=== PATIENT | male | born 1940 | race American Indian/Alaskan Native ===

== ENCOUNTER 2016-11-19 09:24 | Outpatient (CLI) | payer MEDICARE ==
[2016-11-19 09:45] LABS: Hemoglobin 10.5 gm/dl (11.8-15.2); Mean Corpuscular HGB Conc 32 % (32-34); Mean Corpuscular Hemoglobin 32 pg (28-32); Mean Corpuscular Volume 99 fl (84-94); Platelet Count 164 K/mm3 (140-440); Red Blood Count 3.33 M/mm3 (3.65-5.03); Red Cell Distribution Width 18.6 % (13.2-15.2); White Blood Count 3.5 K/mm3 (4.5-11.0)
[2016-11-19 10:24] LABS: Albumin 4.2 g/dL (3.9-5); BUN/Creatinine Ratio 3.77; Bilirubin,Total 0.6 mg/dL (0.1-1.2); Calcium 9.6 mg/dL (8.4-10.2); Chloride 99.8 mmol/L (98-107); Potassium 3.9 mmol/L (3.6-5.0); Total Protein 8.3 g/dL (6.3-8.2)
[2016-11-21 17:25] LABS: Vitamin D, 25-OH, Total 36 ng/mL (30-100)
== END 2016-11-19 09:25 | disposition home or self-care (01) ==
LOC: LAB 09:24
PROVIDERS: ATTEND Internal Medicine
DX: Z00.01 Encounter for general adult medical examination with abnormal findings (principal); E11.65 Type 2 diabetes mellitus with hyperglycemia; N40.1 Benign prostatic hyperplasia with lower urinary tract symptoms
CPT/HCPCS: 36415; 80053; 80061; 82306; 83036; 84153; 84443; 85027

== ENCOUNTER 2018-02-11 08:34 | Outpatient (CLI) | payer MEDICARE ==
[2018-02-11 08:49] LABS: Hematocrit 33.2 % (35.5-45.6); Hemoglobin 11.1 gm/dl (11.8-15.2); Mean Corpuscular HGB Conc 33 % (32-34); Mean Corpuscular Hemoglobin 32 pg (28-32); Mean Corpuscular Volume 97 fl (84-94); Platelet Count 100 K/mm3 (140-440); Red Blood Count 3.43 M/mm3 (3.65-5.03); Red Cell Distribution Width 15.4 % (13.2-15.2)
[2018-02-11 09:03] LABS: Albumin 3.8 g/dL (3.9-5); Chol/HDL Ratio 1.5 %
== END 2018-02-11 08:35 | disposition home or self-care (01) ==
LOC: LAB 08:34
PROVIDERS: ATTEND Internal Medicine
DX: Z00.01 Encounter for general adult medical examination with abnormal findings (principal); R53.83 Other fatigue; N40.1 Benign prostatic hyperplasia with lower urinary tract symptoms; E55.9 Vitamin D deficiency, unspecified; E78.2 Mixed hyperlipidemia; I11.0 Hypertensive heart disease with heart failure; I50.9 Heart failure, unspecified; E78.00 Pure hypercholesterolemia, unspecified; I25.10 Atherosclerotic heart disease of native coronary artery without angina pectoris; Z87.891 Personal history of nicotine dependence
CPT/HCPCS: 36415; 80053; 80061; 82306; 83036; 84153; 84443; 85027

== ENCOUNTER 2020-06-30 14:03 | Inpatient (IN) | payer MEDICARE ==
--- NOTE | 2020-06-30 17:44 | XRay Report ---
CHEST 2 VIEWS INDICATION: weakness. COMPARISON: 09/26/2013 is compared FINDINGS: Support devices: None. Heart: Cardiac enlargement Lungs: Diffuse interstitial process with minimum patchy parenchymal changes right midlung zone Pleura: No significant pleural effusion. No pneumothorax. Additional findings: None. IMPRESSION: 1. Diffuse interstitial pulmonary edema probably secondary to left ventricular decompensation. Signer Name: Alli Yates MD Signed: 06/30/2020 5:39 PM Workstation Name: [id number]
--- NOTE | 2020-06-30 18:12 | Cat Scan Report ---
CT BRAIN: 06/30/2020 INDICATION / CLINICAL INFORMATION: blurred vision, generalized weakness. COMPARISON: None available. FINDINGS: BRAIN/INTRACRANIAL STRUCTURES: Unenhanced CT images of the brain demonstrate no evidence of acute int racranial abnormality. Ventricles and sulci are slightly prominent in size, consistent with normal age-related atrophic villagran ge. There is no evidence of acute ischemic injury, hemorrhage, or mass. There are no abnormal extra-axial fluid collections. EXTRACRANIAL STRUCTURES: Unremarkable. IMPRESSION: No acute abnormality. All CT scans at this location are performed using dose reduction to ALARA by means of automated expos ure control. Signer Name: Anant Arevalo MD Signed: 06/30/2020 6:07 PM Workstation Name: [id number]
--- NOTE | 2020-06-30 18:59 | Emergency Department Report ---
HPI - General Chief Complaint: Weakness Time Seen by Provider: 06/30/20 18:33 - HPI HPI: Room 24 The patient is a 79-year-old male present with a chief complaint of heavy legs. The patient states I dialysis yesterday he was told his blood pressure was low. Today the patient says he "kept falling" secondary to his legs feeling heavy and giving out. Patient denied any loss of consciousness or head injury with his falls. Patient denies chest pain or shortness of breath. Patient denies fever, cough or known contact with Covid positive patients. In triage the patient was found to be hypotensive at 89/35 but he is currently normotensive. ED Past Medical Hx - Past Medical History Previous Medical History?: Yes Hx Hypertension: Yes Hx Congestive Heart Failure: Yes Hx Renal Disease: Yes (M, W, F) - Surgical History Past Surgical History?: Yes Additional Surgical History: dialysis fistuala bilateral upper extremities (Left upper extremity fistula functional), kidney biopsy - Family History Family history: no significant - Social History Smoking Status: Former Smoker (None since 1989) Substance Use Type: None (Denies illicit drug use) - Medications Home Medications: Home Medications Medication Instructions Recorded Confirmed Last Taken Type Iron,Carb/Folate6/Mv,Min No.41 15 mg PO DAILY 09/27/13 02/18/14 02/17/14 History [Corvite 150 Tablet] 15 mg Paricalcitol [Zemplar] 4 mcg PO 3XW 09/27/13 02/18/14 02/17/14 History 4 mcg Furosemide [Lasix] 40 mg PO QDAY #30 tablet 10/01/13 02/18/14 02/18/14 08:00 Rx Simvastatin 40 mg PO QHS #30 tablet 10/01/13 02/18/14 02/17/14 Rx 40 Terazosin (Nf) [Hytrin (Nf)] 5 mg PO QHS #30 capsule 10/01/13 02/18/14 02/18/14 Rx 40 mg amLODIPine 10 mg PO DAILY #30 tablet 10/01/13 02/18/14 02/18/14 Rx 10 carvediloL [Coreg] 6.25 mg PO BID #60 tablet 10/01/13 02/18/14 02/18/14 Rx 6.25 cloNIDine [Catapres] 0.1 mg PO BID #60 tablet 10/01/13 02/18/14 02/18/14 10:00 Rx 0.1 hydrALAZINE [Apresoline TAB] 25 mg PO TID #90 tablet 10/01/13 02/18/14 02/18/14 08:00 Rx 25 ED Review of Systems ROS: Stated complaint: BLURRED VISION Other details as noted in HPI Constitutional: weakness. denies: fever Respiratory: no symptoms reported. denies: cough, shortness of breath Cardiovascular: denies: chest pain Endocrine: no symptoms reported Gastrointestinal: denies: abdominal pain Musculoskeletal: denies: back pain Neurological: denies: headache Physical Exam - Physical Exam Vital Signs: Vital Signs 06/30/20 18:02 Pulse Rate 60 Respiratory 20 Rate Blood Pressure 127/67 [Left] O2 Sat by Pulse 93 Oximetry Physical Exam: GENERAL: The patient is well-developed well-nourished male lying on stretcher not appearing to be in acute distress. [] HEENT: Normocephalic. Atraumatic. Extraocular motions are intact. Patient has moist mucous membranes. NECK: Supple. Trachea midline CHEST/LUNGS: Clear to auscultation. There is no respiratory distress noted. HEART/CARDIOVASCULAR: Regular. There is no tachycardia. There is no gallop rub or murmur. ABDOMEN: Abdomen is soft, nontender. Patient has normal bowel sounds. There is no abdominal distention. SKIN: There is no rash. There is no edema. There is no diaphoresis. NEURO: The patient is awake, alert, and oriented. The patient is cooperative. The patient has normal speech. Cranial nerves II through XII grossly intact. Moves both legs well. MUSCULOSKELETAL: There is no evidence of acute injury. ED Course Vital Signs 06/30/20 18:02 Pulse Rate 60 Respiratory 20 Rate Blood Pressure 127/67 [Left] O2 Sat by Pulse 93 Oximetry ED Medical Decision Making - Lab Data Result diagrams: 06/30/20 17:12 06/30/20 17:12 - EKG Data -: EKG Interpreted by Me Rate: bradycardia Critical care attestation.: If time is entered above; I have spent that time in minutes in the direct care of this critically ill patient, excluding procedure time. ED Disposition Clinical Impression: Symptomatic anemia Disposition: -09 OP ADMIT IP TO THIS HOSP Is pt being admited?: Yes Does the pt Need Aspirin: No Condition: Fair Referrals: PRIMARY CARE, [Primary Care Provider] - 3-5 Days Time of Disposition: 21:06 (Hospitalist paged (Dr Jeffries))
[2020-06-30 19:10] LABS: Basophils % (Auto) 0.7 % (0.0-1.8); Eosinophils # (Auto) 0.1 K/mm3 (0.0-0.4); Eosinophils % (Auto) 1.5 % (0.0-4.3); Hemoglobin 6.9 gm/dl (11.8-15.2); Lymphocytes # (Auto) 0.6 K/mm3 (1.2-5.4); Mean Corpuscular HGB Conc 33 % (32-34); Mean Corpuscular Volume 107 fl (84-94); Monocytes # (Auto) 0.5 K/mm3 (0.0-0.8); Monocytes % (Auto) 13.6 % (0.0-7.3); Platelet Count 112 K/mm3 (140-440); Red Blood Count 1.96 M/mm3 (3.65-5.03); Red Cell Distribution Width 17.5 % (13.2-15.2)
[2020-06-30 19:30] LABS: Albumin 3.7 g/dL (3.9-5); Calcium 9.1 mg/dL (8.4-10.2)
[2020-06-30 19:31] LABS: INR 1.68 (0.87-1.13)
[2020-06-30 19:32] LABS: Partial Thromboplastin Time 33.5 Sec. (24.2-36.6)
[2020-06-30 19:46] LABS: Free T4 (Free Thyroxine) 0.96 ng/dL (0.76-1.46)
[2020-06-30 19:52] LABS: Chol/HDL Ratio 2.06 %
[2020-06-30] MEDS ORDERED: SODIUM CHLORIDE 0.9% 500 ML 500 ML IV ONE (21:36)
[2020-06-30] MEDS ORDERED: MORPHINE 2 MG/1 ML INJ IV PRN (22:47)
[2020-06-30] MEDS ORDERED: ACETAMINOPHEN 325 MG TAB PO PRN (22:47)
[2020-06-30] MEDS ORDERED: ONDANSETRON 4 MG/2 ML INJ IV PRN (22:47)
[2020-06-30] MEDS ORDERED: MAGNESIUM HYDROXIDE (MOM) ORAL LIQD UDC PO PRN (22:47)
--- NOTE | 2020-06-30 22:58 | History and Physical Report ---
History of Present Illness Date of examination: 06/30/20 Date of admission: 06/30/20 21:35 Chief complaint: Generalized weakness History of present illness: 79-year-old male with known history of CHF, hypertension, end-stage renal disease on dialysis-on Mondays, Wednesdays and Fridays presenting to the emergency room today complaining of generalized weakness and has been having frequent falls because his legs were feeling weak and heavy. He denies any loss of consciousness and no head injury during his fall, he denies any chest pain or shortness of breath, no fever or chills, no nausea vomiting, denies any sick contacts and no recent travel, denies any contact with anyone with COVID-19. Patient has been compliant with his dialysis. Upon arrival in the emergency room today was found to be hypotensive with systolic blood pressure in the 80s and diastolic in the 30s. Work-up in the emergency room today reveals a hemoglobin of 6.9 with hematocrit of 21. Patient is being admitted for symptomatic anemia and will be transfused with 1 unit of packed red blood cell. Past History Past Medical History: dialysis, ESRD, heart failure, hypertension, hyperlipidemia Past Surgical History: Other (A-V fistula placement,Kidney biopsy) Social history: smoking (Former Smoker) Family history: no significant family history Medications and Allergies Allergies Allergy/AdvReac Type Severity Reaction Status Date / Time No Known Allergies Allergy Verified 10/08/13 07:00 Home Medications Medication Instructions Recorded Confirmed Last Taken Type Furosemide [Lasix] 40 mg PO QDAY #30 tablet 10/01/13 07/01/20 02/18/14 08:00 Rx Simvastatin 40 mg PO QHS #30 tablet 10/01/13 07/01/20 02/17/14 Rx 40 Terazosin (Nf) [Hytrin (Nf)] 5 mg PO QHS #30 capsule 10/01/13 07/01/20 02/18/14 Rx 40 mg cloNIDine [Catapres] 0.1 mg PO BID #60 tablet 10/01/13 07/01/20 02/18/14 10:00 Rx 0.1 hydrALAZINE [Apresoline TAB] 25 mg PO TID #90 tablet 10/01/13 07/01/20 02/18/14 08:00 Rx 25 Apixaban [Eliquis] 2.5 mg PO BID 07/01/20 07/01/20 Unknown History Aspirin [Adult Aspirin] 81 mg PO DAILY 07/01/20 07/01/20 Unknown History Tamsulosin [Flomax] 0.4 mg PO DAILY 07/01/20 07/01/20 Unknown History carvediloL [Coreg] 3.125 mg PO BID 07/01/20 07/01/20 Unknown History Active Meds: Active Medications Acetaminophen (Tylenol) 650 mg PO Q4H PRN PRN Reason: Pain MILD(1-3)/Fever >100.5/RAO Magnesium Hydroxide (Milk Of Magnesia) 30 ml PO Q4H PRN PRN Reason: Constipation Morphine Sulfate (Morphine) 2 mg IV Q4H PRN PRN Reason: Pain, Moderate (4-6) Ondansetron HCl (Zofran) 4 mg IV Q8H PRN PRN Reason: Nausea And Vomiting Sodium Chloride (Sodium Chloride Flush Syringe 10 Ml) 10 ml IV BID MARISELA Sodium Chloride (Sodium Chloride Flush Syringe 10 Ml) 10 ml IV PRN PRN PRN Reason: LINE FLUSH Review of Systems Constitutional: weakness, no fever, no chills Ears, nose, mouth and throat: no nasal congestion, no sore throat Cardiovascular: no chest pain, no palpitations Respiratory: no cough, no shortness of breath Gastrointestinal: no abdominal pain, no nausea, no vomiting, no diarrhea Genitourinary Male: no dysuria, no hematuria, no flank pain Musculoskeletal: no neck pain, no low back pain Integumentary: no rash, no pruritis Neurological: no headaches, no confusion Psychiatric: no anxiety, no depression Exam - Constitutional Vitals: Temp Pulse Resp BP Pulse Ox 44 L 23 98/45 93 06/30/20 22:00 06/30/20 22:00 06/30/20 22:00 06/30/20 22:00 General appearance: Present: no acute distress, well-nourished, other (Moderate Pallor) - EENT Eyes: Present: PERRL, EOM intact. Absent: scleral icterus ENT: hearing intact, clear oral mucosa, dentition normal - Neck Neck: Present: supple, normal ROM - Respiratory Respiratory effort: normal Respiratory: bilateral: CTA - Cardiovascular Rhythm: regular Heart Sounds: Present: S1 & S2. Absent: gallop, systolic murmur, diastolic murmur, rub - Extremities Extremities: no ischemia, Full ROM Extremity abnormal: edema (1+ bilateral lower extremity edema) Peripheral Pulses: within normal limits - Abdominal General gastrointestinal: Present: soft, non-tender, normal bowel sounds. Absent: mass - Integumentary Integumentary: Present: clear, warm, dry - Musculoskeletal Musculoskeletal: strength equal bilaterally - Psychiatric Psychiatric: appropriate mood/affect, intact judgment & insight, memory intact, cooperative - Neurologic Neurologic: CNII-XII intact, no focal deficits, moves all extremities HEART Score - HEART Score Troponin: Troponin T 0.248 ng/mL (0.00-0.029) H* 06/30/20 17:12 Results - Labs CBC & Chem 7: 06/30/20 17:12 06/30/20 17:12 Labs: Abnormal lab results 06/30/20 06/30/20 06/30/20 Range/Units 17:12 17:12 17:12 WBC 4.0 L (4.5-11.0) K/mm3 RBC 1.96 L (3.65-5.03) M/mm3 Hgb 6.9 L (11.8-15.2) gm/dl Hct 21.0 L (35.5-45.6) % MCV 107 H (84-94) fl MCH 35 H (28-32) pg RDW 17.5 H (13.2-15.2) % Plt Count 112 L (140-440) K/mm3 [place] % (Auto) 13.6 H (0.0-7.3) % Lymph # (Auto) 0.6 L (1.2-5.4) K/mm3 PT 20.0 H (12.2-14.9) Sec. INR 1.68 H (0.87-1.13) Chloride 96.9 L (98-107) mmol/L BUN 47 H (9-20) mg/dL Creatinine 5.2 H (0.8-1.3) mg/dL Magnesium 2.90 H (1.7-2.3) mg/dL Troponin T 0.248 H* (0.00-0.029) ng/mL Albumin 3.7 L (3.9-5) g/dL LDL Cholesterol Direct 49 L (50-130) mg/dL TSH (0.270-4.200) mlU/mL Crossmatch 06/30/20 06/30/20 Range/Units 18:51 21:50 WBC (4.5-11.0) K/mm3 RBC (3.65-5.03) M/mm3 Hgb (11.8-15.2) gm/dl Hct (35.5-45.6) % MCV (84-94) fl MCH (28-32) pg RDW (13.2-15.2) % Plt Count (140-440) K/mm3 [place] % (Auto) (0.0-7.3) % Lymph # (Auto) (1.2-5.4) K/mm3 PT (12.2-14.9) Sec. INR (0.87-1.13) Chloride (98-107) mmol/L BUN (9-20) mg/dL Creatinine (0.8-1.3) mg/dL Magnesium (1.7-2.3) mg/dL Troponin T (0.00-0.029) ng/mL Albumin (3.9-5) g/dL LDL Cholesterol Direct (50-130) mg/dL TSH 4.650 H (0.270-4.200) mlU/mL Crossmatch See Detail Assessment and Plan - Patient Problems (1) Symptomatic anemia Current Visit: Yes Status: Acute Plan to address problem: Probably chronic from chronic kidney disease. Patient to be transfused with pa cked red blood cells. Will monitor CBC. (2) ESRD (end stage renal disease) Current Visit: No Status: Acute Plan to address problem: We will place consult to nephrology for dialysis. Patient follows up with Dr. Rubalcava. (3) HTN (hypertension) Current Visit: No Status: Chronic Plan to address problem: We will resume routine home medications and monitor vital signs closely. (4) DVT prophylaxis Current Visit: Yes Status: Acute Plan to address problem: Patient placed on sequential compression device (5) Full code status Current Visit: Yes Status: Acute
[2020-06-30] MEDS ORDERED: SODIUM CHLORIDE 0.9% 500 ML 500 ML ONE (23:23)
--- NOTE | 2020-07-01 06:44 | Consultation ---
History of Present Illness - Reason for Consult Consult date: 07/01/20 end stage renal disease - History of Present Illness This is a 79-year-old man with End-stage renal disease on dialysis-on Mondays, Wednesdays and Fridays, congestive heart failure, hypertension who presented to the emergency department with generalized weakness and frequent falls. Upon arrival he was noted to be hypotensive with systolic blood pressure in the 80s and diastolic in the 30s. Work-up in the emergency room today revealed a hemoglobin of 6.9 with hematocrit of 21. patient was admitted for symptomatically anemia. Nephrology was consulted for ESRD management. He is dialyzed under the care of Dr. Mascorro at [facility] dialysis unit on a MWF schedule. His dialysis time is 195 minutes and his target weight is 55 kg. Past History Past Medical History: dialysis, ESRD, heart failure, hypertension, hyperlipidemia Past Surgical History: Other (A-V fistula placement,Kidney biopsy) Social history: smoking (Former Smoker) Family history: no significant family history Medications and Allergies Allergies Allergy/AdvReac Type Severity Reaction Status Date / Time No Known Allergies Allergy Verified 10/08/13 07:00 Home Medications Medication Instructions Recorded Confirmed Last Taken Type Furosemide [Lasix] 40 mg PO QDAY #30 tablet 10/01/13 07/01/20 02/18/14 08:00 Rx Simvastatin 40 mg PO QHS #30 tablet 10/01/13 07/01/20 02/17/14 Rx 40 Terazosin (Nf) [Hytrin (Nf)] 5 mg PO QHS #30 capsule 10/01/13 07/01/20 02/18/14 Rx 40 mg cloNIDine [Catapres] 0.1 mg PO BID #60 tablet 10/01/13 07/01/20 02/18/14 10:00 Rx 0.1 hydrALAZINE [Apresoline TAB] 25 mg PO TID #90 tablet 10/01/13 07/01/20 02/18/14 08:00 Rx 25 Apixaban [Eliquis] 2.5 mg PO BID 07/01/20 07/01/20 Unknown History Aspirin [Adult Aspirin] 81 mg PO DAILY 07/01/20 07/01/20 Unknown History Tamsulosin [Flomax] 0.4 mg PO DAILY 07/01/20 07/01/20 Unknown History carvediloL [Coreg] 3.125 mg PO BID 07/01/20 07/01/20 Unknown History Active Meds: Active Medications Acetaminophen (Tylenol) 650 mg PO Q4H PRN PRN Reason: Pain MILD(1-3)/Fever >100.5/RAO Magnesium Hydroxide (Milk Of Magnesia) 30 ml PO Q4H PRN PRN Reason: Constipation Morphine Sulfate (Morphine) 2 mg IV Q4H PRN PRN Reason: Pain, Moderate (4-6) Ondansetron HCl (Zofran) 4 mg IV Q8H PRN PRN Reason: Nausea And Vomiting Sodium Chloride (Sodium Chloride Flush Syringe 10 Ml) 10 ml IV BID MARISELA Sodium Chloride (Sodium Chloride Flush Syringe 10 Ml) 10 ml IV PRN PRN PRN Reason: LINE FLUSH Review of Systems Constitutional: weakness Eyes: bilateral: other (no discharge or loss of vision) Ears, nose, mouth and throat: other (no congestion or discharge) Cardiovascular: other (no chest pain or palpitations) Respiratory: other (no cough or shortness of breath) Gastrointestinal: other (no nausea or vomiting) Genitourinary Male: other (no hematuria or flank pain) Musculoskeletal: muscle weakness, frequent falls Integumentary: other (no rash or pruritus) Neurological: other (no syncope or seizure) Psychiatric: other (no anxiety or confusion) Endocrine: other (no polydipsia or proptosis) Allergic/Immunologic: other (no urticaria or wheezing) Exam - Vital Signs Vital signs: Vital Signs Pulse Ox 94 06/30/20 17:58 - Physical Exam Narrative exam: Vitals: Reviewed General: No acute distress HEENT: Oral mucosa moist, no pharyngeal erythema, no evidence of epistaxis Neck: Supple, no evidence of any JVD, trachea midline, no thyromegaly Chest: Clear to auscultation, no crackles, rales or wheezes Heart: decreased bibasilar breath sounds Abdomen: Soft, nontender, no renal bruit, no suprapubic masses no CVA tenderness Extremity: No peripheral cyanosis, edema and dry skin Neurological: Alert, awake, no asterixis Dermatology; no skin rashes Back: Nontender thoracolumbar spine, no CVA tenderness Psych: No agitation and aggression Musculoskeletal: No joint effusion noted Results - Lab Results 07/01/20 06:57 07/01/20 06:57 Most recent lab results Calcium 9.1 mg/dL (8.4-10.2) 06/30/20 17:12 Magnesium 2.90 mg/dL (1.7-2.3) H 06/30/20 17:12 Assessment and Plan Assessment * End-stage renal disease on hemodialysis * Hypertension * Symptomatic anemia * thrombocytopenia * Elevated troponin * hyperparathyroidism * Hyperphosphatemia Recommendations * no immediate need for dialysis today * Hold today given ongoing acute issues * Transfuse for hemoglobin less than 7 * Trend troponin * Check EKG * cardiology consult * Hold home antihypertensives * Keep MAP > 65 * Phosphorus binders with meals * Renally dose medications * ESRD diet
[2020-07-01 07:35] LABS: Eosinophils # (Auto) 0.1 K/mm3 (0.0-0.4); Eosinophils % (Auto) 1.9 % (0.0-4.3); Hematocrit 23.1 % (35.5-45.6); Hemoglobin 7.5 gm/dl (11.8-15.2); Lymphocytes # (Auto) 0.5 K/mm3 (1.2-5.4); Lymphocytes % (Auto) 10.3 % (13.4-35.0); Mean Corpuscular HGB Conc 32 % (32-34); Mean Corpuscular Volume 104 fl (84-94); Monocytes # (Auto) 0.5 K/mm3 (0.0-0.8); Monocytes % (Auto) 10.9 % (0.0-7.3); Platelet Count 103 K/mm3 (140-440); Red Blood Count 2.21 M/mm3 (3.65-5.03); Red Cell Distribution Width 18.3 % (13.2-15.2)
[2020-07-01 07:44] LABS: INR 1.62 (0.87-1.13)
[2020-07-01 07:52] LABS: Calcium 8.8 mg/dL (8.4-10.2)
--- NOTE | 2020-07-01 10:36 | Progress Note ---
Assessment and Plan Assessment and plan: -- Symptomatic anemia Current Visit: Yes Status: Acute Plan to address problem: Probably anemia of chronic disease received 1 unit of PRBC transfusion Hb improved to 7.5, closely monitor H&H and transfuse additional PRBC -- ESRD (end stage renal disease) Current Visit: No Status: Acute Plan to address problem: Nephrology evaluation noted Hemodialysis per schedule MWF His HD is due today --Elevated troponins; probably an STEMI 2 Current Visit: No Status: Chronic Plan to address problem: In the setting of ESRD probably nonspecific Patient has risk factors , trend troponins Echocardiogram , LV function ejection fraction , Will trend troponins cardiology consult Possible stress test tomorrow -- HTN (hypertension) Current Visit: No Status: Chronic Plan to address problem: Well-controlled, blood pressure in the lower range Closely monitor -- DVT prophylaxis Current Visit: Yes Status: Acute Plan to address problem: Heparin renal dose --Full code status Current Visit: Yes Status: Acute Closely monitor the patient and adjust management as needed Possible discharge home today /tomorrow if stable History Interval history: I have seen and examined the patient at the bedside Patient's chart and medications reviewed Patient was admitted with generalized weakness and symptomatic anemia Received 1 unit of PRBC transfusion Patient denies any chest pain or shortness of breath End-stage renal disease on hemodialysis MWF, due today Patient is concerned that he is not getting dialysis here Wants to go to his regular dialysis unit for his scheduled Saturday dialysis Patient has no new complaints Vital signs reviewed Hospitalist Physical - Constitutional Vitals: Temp Pulse Resp BP Pulse Ox 98.4 F 71 18 91/49 87 07/01/20 06:33 07/01/20 06:33 07/01/20 06:33 07/01/20 06:33 07/01/20 06:33 General appearance: Present: no acute distress, well-nourished, other (Moderate Pallor) - EENT Eyes: Present: PERRL, EOM intact - Neck Neck: Present: supple, normal ROM - Respiratory Respiratory effort: normal Respiratory: bilateral: diminished, negative: rales, rhonchi, wheezing - Cardiovascular Rhythm: regular Heart Sounds: Present: S1 & S2 - Extremities Extremities: no ischemia, No edema - Abdominal General gastrointestinal: soft, non-tender, non-distended, normal bowel sounds - Integumentary Integumentary: Present: clear, warm - Psychiatric Psychiatric: appropriate mood/affect, cooperative - Neurologic Neurologic: moves all extremities HEART Score - HEART Score Troponin: Troponin T 0.248 ng/mL (0.00-0.029) H* 06/30/20 17:12 Results - Labs CBC & Chem 7: 07/01/20 06:57 07/01/20 06:57 Labs: Laboratory Last Values WBC 4.6 K/mm3 (4.5-11.0) 07/01/20 06:57 RBC 2.21 M/mm3 (3.65-5.03) L 07/01/20 06:57 Hgb 7.5 gm/dl (11.8-15.2) L 07/01/20 06:57 Hct 23.1 % (35.5-45.6) L 07/01/20 06:57 MCV 104 fl (84-94) H 07/01/20 06:57 MCH 34 pg (28-32) H 07/01/20 06:57 MCHC 32 % (32-34) 07/01/20 06:57 RDW 18.3 % (13.2-15.2) H 07/01/20 06:57 Plt Count 103 K/mm3 (140-440) L 07/01/20 06:57 Lymph % (Auto) 10.3 % (13.4-35.0) L 07/01/20 06:57 [place] % (Auto) 10.9 % (0.0-7.3) H 07/01/20 06:57 Eos % (Auto) 1.9 % (0.0-4.3) 07/01/20 06:57 Baso % (Auto) 1.0 % (0.0-1.8) 07/01/20 06:57 Lymph # (Auto) 0.5 K/mm3 (1.2-5.4) L 07/01/20 06:57 [place] # (Auto) 0.5 K/mm3 (0.0-0.8) 07/01/20 06:57 Eos # (Auto) 0.1 K/mm3 (0.0-0.4) 07/01/20 06:57 Baso # (Auto) 0.0 K/mm3 (0.0-0.1) 07/01/20 06:57 Seg Neutrophils % 75.9 % (40.0-70.0) H 07/01/20 06:57 Seg Neutrophils # 3.5 K/mm3 (1.8-7.7) 07/01/20 06:57 PT 19.4 Sec. (12.2-14.9) H 07/01/20 06:57 INR 1.62 (0.87-1.13) H 07/01/20 06:57 APTT 33.5 Sec. (24.2-36.6) 06/30/20 17:12 Sodium 139 mmol/L (137-145) 07/01/20 06:57 Potassium 4.4 mmol/L (3.6-5.0) 07/01/20 06:57 Chloride 101.6 mmol/L (98-107) 07/01/20 06:57 Carbon Dioxide 28 mmol/L (22-30) 07/01/20 06:57 Anion Gap 14 mmol/L 07/01/20 06:57 BUN 57 mg/dL (9-20) H 07/01/20 06:57 Creatinine 6.1 mg/dL (0.8-1.3) H 07/01/20 06:57 Estimated GFR 11 ml/min 07/01/20 06:57 BUN/Creatinine Ratio 9 % 07/01/20 06:57 Glucose 85 mg/dL (75-100) 07/01/20 06:57 Calcium 8.8 mg/dL (8.4-10.2) 07/01/20 06:57 Magnesium 2.90 mg/dL (1.7-2.3) H 06/30/20 17:12 Total Bilirubin 0.40 mg/dL (0.1-1.2) 06/30/20 17:12 AST 20 units/L (5-40) 06/30/20 17:12 ALT 14 units/L (7-56) 06/30/20 17:12 Alkaline Phosphatase 71 units/L (35-129) 06/30/20 17:12 Troponin T 0.248 ng/mL (0.00-0.029) H* 06/30/20 17:12 Total Protein 7.2 g/dL (6.3-8.2) 06/30/20 17:12 Albumin 3.7 g/dL (3.9-5) L 06/30/20 17:12 Albumin/Globulin Ratio 1.1 % 06/30/20 17:12 Triglycerides 62 mg/dL (2-149) 06/30/20 17:12 Cholesterol 101 mg/dL (50-199) 06/30/20 17:12 LDL Cholesterol Direct 49 mg/dL (50-130) L 06/30/20 17:12 HDL Cholesterol 49 mg/dL (40-59) 06/30/20 17:12 Cholesterol/HDL Ratio 2.06 % 06/30/20 17:12 TSH 4.650 mlU/mL (0.270-4.200) H 06/30/20 18:51 Free T4 0.96 ng/dL (0.76-1.46) 06/30/20 18:51 Blood Type O POSITIVE 06/30/20 21:50 Antibody Screen Negative 06/30/20 21:50 Crossmatch See Detail 06/30/20 21:50 Lemus/IV: Voiding Method Urinal IV Catheter Type [Left Hand] INT / Saline Lock IV Catheter Type [Right fistula Forearm] IV Catheter Type [Left Upper fistula arm] Active Medications - Current Medications Current Medications: Generic Name Dose Route Start Last Admin Trade Name Freq PRN Reason Stop Dose Admin Acetaminophen 650 mg 06/30/20 22:47 Tylenol PO Q4H PRN Pain MILD(1-3)/Fever >100.5/RAO Magnesium Hydroxide 30 ml 06/30/20 22:47 Milk Of Magnesia PO Q4H PRN Constipation Morphine Sulfate 2 mg 06/30/20 22:47 Morphine IV Q4H PRN Pain, Moderate (4-6) Ondansetron HCl 4 mg 06/30/20 22:47 Zofran IV Q8H PRN Nausea And Vomiting Sodium Chloride 10 ml 07/01/20 10:00 Sodium Chloride Flush Syringe 10 Ml IV BID MARISELA Sodium Chloride 10 ml 06/30/20 22:47 Sodium Chloride Flush Syringe 10 Ml IV PRN PRN LINE FLUSH
[2020-07-01] MEDS ORDERED: NON-FORMULARY EACH (Terazosin (Nf) 5 MG) PO SCH (22:00)
[2020-07-01] MEDS ORDERED: NON-FORMULARY EACH (Simvastatin [Simvastatin] 40 MG) PO SCH (22:00)
[2020-07-01] MEDS: hydrALAZINE 25 MG TAB PO SCH (22:11)
[2020-07-01] MEDS: cloNIDine 0.1 MG TAB PO SCH (22:12)
[2020-07-01] MEDS: carvediloL 3.125 MG TAB PO SCH (22:12)
[2020-07-01] MEDS: APIXABAN 2.5 MG TAB PO SCH (22:16)
[2020-07-01] MEDS: PRAVASTATIN 80 MG TAB PO SCH (22:16)
[2020-07-01] MEDS: PRAZOSIN 1 MG CAP PO SCH (22:17)
[2020-07-02] MEDS: cloNIDine 0.1 MG TAB PO SCH ×2 (11:29→21:34)
[2020-07-02] MEDS: carvediloL 3.125 MG TAB PO SCH ×2 (11:30→21:39)
[2020-07-02] MEDS: hydrALAZINE 25 MG TAB PO SCH ×3 (11:30→21:34)
[2020-07-02] MEDS: FUROSEMIDE 20 MG TAB PO SCH (11:31)
[2020-07-02] MEDS: PRAZOSIN 1 MG CAP PO SCH ×2 (11:31→21:35)
[2020-07-02] MEDS: APIXABAN 2.5 MG TAB PO SCH ×2 (11:36→21:34)
[2020-07-02] MEDS: ASPIRIN EC 81 MG TAB PO SCH (11:36)
[2020-07-02] MEDS: TAMSULOSIN 0.4 MG CAP PO SCH (11:36)
--- NOTE | 2020-07-02 11:46 | Progress Note ---
Assessment and Plan Assessment and plan: -- Symptomatic anemia Current Visit: Yes Status: Acute Plan to address problem: Probably anemia of chronic disease received 1 unit of PRBC transfusion Hb improved to 7.5, closely monitor H&H and transfuse additional PRBC -- ESRD (end stage renal disease) Current Visit: No Status: Acute Plan to address problem: Hemodialysis per schedule [facility] Nephrology following --Elevated troponins; probably an STEMI 2 Current Visit: No Status: Chronic Plan to address problem: In the setting of ESRD probably nonspecific Patient has risk factors , trend troponins Echocardiogram , LV function ejection fraction , cardiology evaluation and recommendations noted and appreciated -- HTN (hypertension) Current Visit: No Status: Chronic Plan to address problem: Well-controlled, blood pressure in the lower range Closely monitor -- DVT prophylaxis Current Visit: Yes Status: Acute Plan to address problem: Heparin renal dose --Full code status Current Visit: Yes Status: Acute Closely monitor the patient and adjust management as needed Possible discharge home today /tomorrow if stable History Interval history: I have seen and examined the patient at the bedside this morning Patient's chart and medications reviewed Patient feels slightly better no new complaints Scheduled for hemodialysis today Troponin is persistently elevated Cardiology evaluation and recommendations noted and appreciated Vital signs reviewed Patient has no new complaints Hospitalist Physical - Constitutional Vitals: Temp Pulse Resp BP Pulse Ox 98.6 F 69 18 106/47 94 07/01/20 22:00 07/02/20 11:31 07/01/20 22:00 07/02/20 11:31 07/01/20 22:00 General appearance: Present: no acute distress, well-nourished, other (Moderate Pallor) - EENT Eyes: Present: PERRL, EOM intact - Neck Neck: Present: supple, normal ROM - Respiratory Respiratory effort: normal Respiratory: bilateral: diminished, rales, negative: rhonchi, wheezing - Cardiovascular Rhythm: regular Heart Sounds: Present: S1 & S2 - Extremities Extremities: no ischemia, No edema - Abdominal General gastrointestinal: soft, non-tender, non-distended, normal bowel sounds - Integumentary Integumentary: Present: clear, warm - Psychiatric Psychiatric: appropriate mood/affect, cooperative - Neurologic Neurologic: moves all extremities HEART Score - HEART Score Troponin: Troponin T 0.291 ng/mL (0.00-0.029) H* 07/01/20 15:49 Results - Labs CBC & Chem 7: 07/02/20 13:43 07/02/20 13:43 Labs: Laboratory Last Values WBC 4.6 K/mm3 (4.5-11.0) 07/01/20 06:57 RBC 2.21 M/mm3 (3.65-5.03) L 07/01/20 06:57 Hgb 7.5 gm/dl (11.8-15.2) L 07/01/20 06:57 Hct 23.1 % (35.5-45.6) L 07/01/20 06:57 MCV 104 fl (84-94) H 07/01/20 06:57 MCH 34 pg (28-32) H 07/01/20 06:57 MCHC 32 % (32-34) 07/01/20 06:57 RDW 18.3 % (13.2-15.2) H 07/01/20 06:57 Plt Count 103 K/mm3 (140-440) L 07/01/20 06:57 Lymph % (Auto) 10.3 % (13.4-35.0) L 07/01/20 06:57 [place] % (Auto) 10.9 % (0.0-7.3) H 07/01/20 06:57 Eos % (Auto) 1.9 % (0.0-4.3) 07/01/20 06:57 Baso % (Auto) 1.0 % (0.0-1.8) 07/01/20 06:57 Lymph # (Auto) 0.5 K/mm3 (1.2-5.4) L 07/01/20 06:57 [place] # (Auto) 0.5 K/mm3 (0.0-0.8) 07/01/20 06:57 Eos # (Auto) 0.1 K/mm3 (0.0-0.4) 07/01/20 06:57 Baso # (Auto) 0.0 K/mm3 (0.0-0.1) 07/01/20 06:57 Seg Neutrophils % 75.9 % (40.0-70.0) H 07/01/20 06:57 Seg Neutrophils # 3.5 K/mm3 (1.8-7.7) 07/01/20 06:57 PT 19.4 Sec. (12.2-14.9) H 07/01/20 06:57 INR 1.62 (0.87-1.13) H 07/01/20 06:57 APTT 33.5 Sec. (24.2-36.6) 06/30/20 17:12 Sodium 139 mmol/L (137-145) 07/01/20 06:57 Potassium 4.4 mmol/L (3.6-5.0) 07/01/20 06:57 Chloride 101.6 mmol/L (98-107) 07/01/20 06:57 Carbon Dioxide 28 mmol/L (22-30) 07/01/20 06:57 Anion Gap 14 mmol/L 07/01/20 06:57 BUN 57 mg/dL (9-20) H 07/01/20 06:57 Creatinine 6.1 mg/dL (0.8-1.3) H 07/01/20 06:57 Estimated GFR 11 ml/min 07/01/20 06:57 BUN/Creatinine Ratio 9 % 07/01/20 06:57 Glucose 85 mg/dL (75-100) 07/01/20 06:57 Calcium 8.8 mg/dL (8.4-10.2) 07/01/20 06:57 Magnesium 2.90 mg/dL (1.7-2.3) H 06/30/20 17:12 Total Bilirubin 0.40 mg/dL (0.1-1.2) 06/30/20 17:12 AST 20 units/L (5-40) 06/30/20 17:12 ALT 14 units/L (7-56) 06/30/20 17:12 Alkaline Phosphatase 71 units/L (35-129) 06/30/20 17:12 Troponin T 0.291 ng/mL (0.00-0.029) H* 07/01/20 15:49 Total Protein 7.2 g/dL (6.3-8.2) 06/30/20 17:12 Albumin 3.7 g/dL (3.9-5) L 06/30/20 17:12 Albumin/Globulin Ratio 1.1 % 06/30/20 17:12 Triglycerides 62 mg/dL (2-149) 06/30/20 17:12 Cholesterol 101 mg/dL (50-199) 06/30/20 17:12 LDL Cholesterol Direct 49 mg/dL (50-130) L 06/30/20 17:12 HDL Cholesterol 49 mg/dL (40-59) 06/30/20 17:12 Cholesterol/HDL Ratio 2.06 % 06/30/20 17:12 TSH 4.650 mlU/mL (0.270-4.200) H 06/30/20 18:51 Free T4 0.96 ng/dL (0.76-1.46) 06/30/20 18:51 Blood Type O POSITIVE 06/30/20 21:50 Antibody Screen Negative 06/30/20 21:50 Crossmatch See Detail 06/30/20 21:50 - Diagnostic Impressions Diagnostic Impressions: Echocardiogram 07/01/20 17:57 Transthoracic Echocardiogram Indication: Elevated cardiac enymes BP: 106/53 HR: 64 Conclusions *The left ventricular chamber size and systolic function are normal. *Mild to moderate concentric left ventricular hypertrophy is observed. *Global left ventricular systolic function is normal. *The estimated ejection fraction is 55-60%. *The left atrium is severely dilated. *There is at least moderate mitral regurgitation. *The aortic valve leaflets are severely thickened with reduced systolic excursion. *There is at least moderate aortic stenosis with a mean gradient of 18 mmHg. *There is mild aortic regurgitation. *The right heart chambers are both moderately dilated. *There is moderate to severe tricuspid regurgitation. *There is at least moderate pulmonary hypertension. *The right ventricular systolic pressure is calculated at 57 mmHg. *There is a minimial pericardial effusion. Findings Left Ventricle: The left ventricular chamber size is normal. Mild to moderate concentric left ventricular hypertrophy is observed. Global left ventricular systolic function is normal. The estimated ejection fraction is 55-60%. Left Atrium: The left atrium is severely dilated. Right Ventricle: The right ventricle is moderately dilated. The right ventricular global systolic function is moderately reduced. Right Atrium: The right atrium is moderately dilated. The interatrial septum appears normal. Aortic Valve: The aortic valve is trileaflet. The aortic valve leaflets are severely thickened with reduced systolic excursion. There is mild aortic regurgitation. There is moderate aortic stenosis. The mean gradient of the aortic valve is 17.9 mmHg. Mitral Valve: The mitral valve leaflets appear normal. There is mitral annular calcification. The mitral valve leaflets are mildly thickened. There is moderate mitral regurgitation. There is no evidence of mitral stenosis. Tricuspid Valve: The tricuspid valve leaflets are normal. There is moderate to severe tricuspid regurgitation. The right ventricular systolic pressure is calculated at 57 mmHg. There is evidence of moderate pulmonary hypertension. Pulmonic Valve: The pulmonic valve appears normal. There is mild pulmonic regurgitation. There is no pulmonic stenosis. Pericardium: There is a minimial pericardial effusion. Aorta: There is no dilatation of the ascending aorta. There is no dilatation of the aortic root. Venous: The inferior vena cava is dilated. There is a greater than 50% respiratory change in the inferior vena cava dimension. Measurements Chambers 2D Name Value Normal Range IVSd (2D) 1.38 cm (0.6 - 1.1) LVPWd (2D) 1.39 cm (0.6 - 1.1) LVIDd (2D) 5.04 cm (3.7 - 5.6) LVIDs (2D) 3.38 cm (2 - 3.8) LV FS (2D) 32.95 % - EF Teichholz (2D) 61.19 % - Ao root diameter (2D) 3.02 cm (2 - 3.7) Volumes/Mass Name Value Normal Range LA ESV SP 4CH (A/L) 117.77 ml - LA ESV SP 2CH (A/L) 147.78 ml - LA ESV BP (A/L) 144.24 ml - LA ESV SP 4CH (MOD) 110.15 ml - LA ESV SP 2CH (MOD) 138.25 ml - LA ESV BP (MOD) 134.68 ml - LA ESV BP (MOD) index 76.52 ml/m2 - LV EDV SP 4CH (MOD) 119.37 ml - LV ESV SP 4CH (MOD) 53.28 ml - EF SP 4CH (MOD) 55.36 % - LV EDV SP 2CH (MOD) 218.43 ml - LV ESV SP 2CH (MOD) 106.09 ml - EF SP 2CH (MOD) 51.43 % - LV EDV BP 162.74 ml - LV ESV BP 73.64 ml - BP EF (MOD) 54.75 % - Aortic Valve Name Value Normal Range AV Vmax 2.94 m/sec - AV VTI 56.56 cm - AV peak gradient 34.5 mmHg - AV mean gradient 17.9 mmHg - LVOT diameter 1.97 cm - LVOT Vmax 1.55 m/sec - LVOT VTI 30.02 cm - LVOT peak gradient 9.66 mmHg - LVOT mean gradient 4.63 mmHg - SV LVOT 91.89 ml - MANOLO (continuity Vmax) 1.62 cm2 - MANOLO (continuity VTI) 1.62 cm2 - AR PHT 599.66 msec - AR peak gradient 76.69 mmHg - Tricuspid Valve Name Value Normal Range TR Vmax 3.25 m/sec - TR peak gradient 42 mmHg - RAP 15 mmHg - RVSP 57 mmHg - Pulmonic Valve/Qp:Qs Name Value Normal Range PV Vmax 1.26 m/sec - PV peak gradient 6.39 mmHg - NV end-diastolic Vmax 1.32 m/sec - PV acceleration time 53.28 msec - Lemus/IV: Voiding Method Toilet IV Catheter Type [Left Hand] INT / Saline Lock IV Catheter Type [Right fistula Forearm] IV Catheter Type [Left Upper fistula arm] Active Medications - Current Medications Current Medications: Generic Name Dose Route Start Last Admin Trade Name Freq PRN Reason Stop Dose Admin Acetaminophen 650 mg 06/30/20 22:47 Tylenol PO Q4H PRN Pain MILD(1-3)/Fever >100.5/RAO Apixaban 2.5 mg 07/01/20 22:00 07/02/20 11:36 Eliquis PO 2.5 mg BID MARISELA Administration Protocol Aspirin 81 mg 07/02/20 10:00 07/02/20 11:36 Halfprin Ec PO 81 mg DAILY MARISELA Administration Carvedilol 3.125 mg 07/01/20 22:00 07/02/20 11:30 Coreg PO Not Given BID MARISELA Clonidine HCl 0.1 mg 07/01/20 22:00 07/02/20 11:29 Catapres PO Not Given BID MARISELA Furosemide 40 mg 07/02/20 10:00 07/02/20 11:31 Lasix PO Not Given QDAY MARISELA Hydralazine HCl 25 mg 07/01/20 20:00 07/02/20 11:30 Apresoline PO Not Given TID [facility] [place] Magnesium Hydroxide 30 ml 06/30/20 22:47 Milk Of Magnesia PO Q4H PRN Constipation Morphine Sulfate 2 mg 06/30/20 22:47 Morphine IV Q4H PRN Pain, Moderate (4-6) Ondansetron HCl 4 mg 06/30/20 22:47 Zofran IV Q8H PRN Nausea And Vomiting Pravastatin Sodium 80 mg 07/01/20 22:00 07/01/20 22:16 Pravachol PO 80 mg QHS MARISELA Administration Prazosin HCl 2 mg 07/01/20 22:00 07/02/20 11:31 Prazosin PO Not Given Q12HR MARISELA Sodium Chloride 10 ml 07/01/20 10:00 07/02/20 11:37 Sodium Chloride Flush Syringe 10 Ml IV 10 ml BID MARISELA Administration Sodium Chloride 10 ml 06/30/20 22:47 Sodium Chloride Flush Syringe 10 Ml IV PRN PRN LINE FLUSH Tamsulosin HCl 0.4 mg 07/02/20 10:00 07/02/20 11:36 Flomax PO 0.4 mg DAILY MARISELA Administration
--- NOTE | 2020-07-02 12:04 | Consultation ---
History of Present Illness Consult date: 07/02/20 Consult reason: elevated troponin History of present illness: The patient is a 79-year-old man with end-stage renal disease on hemodialysis. He has chronic hypertension and paroxysmal atrial fibrillation. Home medications listed include Eliquis for oral anticoagulation. Most recent cardiac work-up in the hospital records was a negative thallium stress test 5 years ago, at that time an echocardiogram reported normal left ventricular systolic function with ejection fraction 55 to 60%. He presents to the hospital at this time with constitutional symptoms of weakness and blurred vision, in the emergency room triage he was noted with a low blood pressure of 89 systolic. There was no chest pain, patient denied unusual shortness of breath or lower extremity edema. The patient states that he has missed 2 dialysis sessions prior to this admission. EKG was atrial fibrillation with well-controlled ventricular rate. Laboratory exam showed severe anemia with a hematocrit of 23, thrombocytopenia of 103, INR of 1.6, and troponin of 0.24. The troponin levels where unchanged on serial measurements. Chest x-ray showed marked cardiomegaly, with diffuse mild interstitial opacities. An echocardiogram done today showed marked dilatation of the right heart chambers, moderately severe tricuspid regurgitation and moderate to severe pulmonary hypertension consistent with cor pulmonale. In addition, there is severe dilatation of the left atrium, left atrial size of 5.3, consistent with chronic atrial fibrillation. Additionally, there was at least moderate calcific aortic stenosis, with a mean gradient of 18. Conversely, left ventricular chamber size and systolic function were within normal limits. Past History Past Medical History: atrial fib, dialysis, ESRD, hypertension, hyperlipidemia Past Surgical History: Other (A-V fistula placement,Kidney biopsy) Social history: smoking (Former Smoker) Family history: no significant family history Medications and Allergies Allergies Allergy/AdvReac Type Severity Reaction Status Date / Time No Known Allergies Allergy Verified 10/08/13 07:00 Home Medications Medication Instructions Recorded Confirmed Last Taken Type Furosemide [Lasix] 40 mg PO QDAY #30 tablet 10/01/13 07/01/20 02/18/14 08:00 Rx Simvastatin 40 mg PO QHS #30 tablet 10/01/13 07/01/20 02/17/14 Rx 40 Terazosin (Nf) [Hytrin (Nf)] 5 mg PO QHS #30 capsule 10/01/13 07/01/20 02/18/14 Rx 40 mg cloNIDine [Catapres] 0.1 mg PO BID #60 tablet 10/01/13 07/01/20 02/18/14 10:00 Rx 0.1 hydrALAZINE [Apresoline TAB] 25 mg PO TID #90 tablet 10/01/13 07/01/20 02/18/14 08:00 Rx 25 Apixaban [Eliquis] 2.5 mg PO BID 07/01/20 07/01/20 Unknown History Aspirin [Adult Aspirin] 81 mg PO DAILY 07/01/20 07/01/20 Unknown History Tamsulosin [Flomax] 0.4 mg PO DAILY 07/01/20 07/01/20 Unknown History carvediloL [Coreg] 3.125 mg PO BID 07/01/20 07/01/20 Unknown History Active Meds: Active Medications Acetaminophen (Tylenol) 650 mg PO Q4H PRN PRN Reason: Pain MILD(1-3)/Fever >100.5/RAO Apixaban (Eliquis) 2.5 mg PO BID [facility]; Protocol Last Admin: 07/02/20 11:36 Dose: 2.5 mg Documented by: Aspirin (Halfprin Ec) 81 mg PO DAILY [facility] Last Admin: 07/02/20 11:36 Dose: 81 mg Documented by: Carvedilol (Coreg) 3.125 mg PO BID [facility] Last Admin: 07/02/20 11:30 Dose: Not Given Documented by: Clonidine HCl (Catapres) 0.1 mg PO BID [facility] Last Admin: 07/02/20 11:29 Dose: Not Given Documented by: Furosemide (Lasix) 40 mg PO QDAY [facility] Last Admin: 07/02/20 11:31 Dose: Not Given Documented by: Hydralazine HCl (Apresoline) 25 mg PO TID [facility] Last Admin: 07/02/20 11:30 Dose: Not Given Documented by: Magnesium Hydroxide (Milk Of Magnesia) 30 ml PO Q4H PRN PRN Reason: Constipation Morphine Sulfate (Morphine) 2 mg IV Q4H PRN PRN Reason: Pain, Moderate (4-6) Ondansetron HCl (Zofran) 4 mg IV Q8H PRN PRN Reason: Nausea And Vomiting Pravastatin Sodium (Pravachol) 80 mg PO QHS [facility] Last Admin: 07/01/20 22:16 Dose: 80 mg Documented by: Prazosin HCl (Prazosin) 2 mg PO Q12HR [facility] Last Admin: 07/02/20 11:31 Dose: Not Given Documented by: Sodium Chloride (Sodium Chloride Flush Syringe 10 Ml) 10 ml IV BID [facility] Last Admin: 07/02/20 11:37 Dose: 10 ml Documented by: Sodium Chloride (Sodium Chloride Flush Syringe 10 Ml) 10 ml IV PRN PRN PRN Reason: LINE FLUSH Tamsulosin HCl (Flomax) 0.4 mg PO DAILY [facility] Last Admin: 07/02/20 11:36 Dose: 0.4 mg Documented by: Review of Systems Cardiovascular: shortness of breath, no chest pain, no orthopnea, no palpitations, no rapid/irregular heart beat, no edema, no syncope, no lightheadedness Physical Examination Vital Signs Pulse Ox 94 06/30/20 17:58 General appearance: no acute distress HEENT: Positive: PERRL Neck: Positive: neck supple Cardiac: Positive: irregularly irregular Lungs: Positive: Decreased Breath Sounds Neuro: Positive: Grossly Intact Abdomen: Positive: Soft Male genitourinary: Positive: deferred Skin: Positive: Clear Extremities: Absent: edema Results 07/01/20 06:57 07/01/20 06:57 EKG interpretations - Telemetry EKG Rhythm: Atrial Fibrillation Assessment and Plan - Patient Problems (1) Volume overload Current Visit: Yes Status: Acute Plan to address problem: Patient's chest x-ray shows diffuse interstitial opacities which the radiologist has determined likely represents pulmonary edema. Recommend fluid overload management with resumption of dialysis as soon as possible. (2) Cor pulmonale Current Visit: Yes Status: Acute Plan to address problem: Patient has dilated right heart chambers, moderate to severe tricuspid regurgitation and moderate to severe pulmonary hypertension. (3) Atrial fibrillation Current Visit: No Status: Acute Plan to address problem: Continue rate control strategy of atrial fibrillation, and oral anticoagulation with Eliquis. (4) Aortic stenosis Current Visit: Yes Status: Acute Plan to address problem: Patient has multiple severe comorbidities and will be a poor candidate for aortic valve surgery, but if treatment is determined necessary in the future can be considered for percutaneous valve replacement.
[2020-07-02 14:29] LABS: Basophils % (Auto) 0.8 % (0.0-1.8); Eosinophils # (Auto) 0.1 K/mm3 (0.0-0.4); Eosinophils % (Auto) 2.5 % (0.0-4.3); Hematocrit 24.1 % (35.5-45.6); Hemoglobin 7.8 gm/dl (11.8-15.2); Lymphocytes # (Auto) 0.5 K/mm3 (1.2-5.4); Lymphocytes % (Auto) 10.4 % (13.4-35.0); Mean Corpuscular HGB Conc 32 % (32-34); Mean Corpuscular Volume 106 fl (84-94); Monocytes # (Auto) 0.5 K/mm3 (0.0-0.8); Monocytes % (Auto) 11.7 % (0.0-7.3); Platelet Count 118 K/mm3 (140-440); Red Blood Count 2.28 M/mm3 (3.65-5.03); Red Cell Distribution Width 18.9 % (13.2-15.2)
[2020-07-02] MEDS ORDERED: SODIUM CHLORIDE 0.9% 100 ML IV PRN (14:30)
[2020-07-02 14:52] LABS: Creatine Kinase MB 2.8 ng/mL (0.0-4.0)
[2020-07-02 14:53] LABS: Calcium 8.7 mg/dL (8.4-10.2)
[2020-07-02 16:19] LABS: Hepatitis B Surface Antigen Non-Reactive (Negative); Hepatitis C Virus Antibody Non-Reactive (NonReactive)
[2020-07-02] MEDS ORDERED: EPOETIN ALFA 10,000 UNIT/1 ML INJ SUB-Q PRN (18:02)
--- NOTE | 2020-07-02 18:04 | Progress Note ---
Assessment and Plan Assessment * End-stage renal disease on hemodialysis * Hypertension * Symptomatic anemia * thrombocytopenia * Elevated troponin, demand ischemia * hyperparathyroidism * Hyperphosphatemia Recommendations * Plan for hemodialysis today * Transfuse for hemoglobin less than 7 * cardiology note reviewed * Continue home antihypertensives * Hold on HD days for systolics < 160 * Epogen with HD * Keep MAP > 65 * Phosphorus binders with meals * Renally dose medications * ESRD diet Subjective Date of service: 07/02/20 Principal diagnosis: anemia Interval history: Patient was seen for his renal issues Nursing, interdisciplinary and consult notes were reviewed Vitals, input and output, medications and labs were reviewed denies chest pain Continues to note lower extremity weakness Objective - Exam Narrative Exam: Vitals: Reviewed General: No acute distress HEENT: Oral mucosa moist, no pharyngeal erythema, no evidence of epistaxis Neck: Supple, no evidence of any JVD, trachea midline, no thyromegaly Chest: Clear to auscultation, no crackles, rales or wheezes Heart: decreased bibasilar breath sounds Abdomen: Soft, nontender, no renal bruit, no suprapubic masses no CVA tenderness Extremity: No peripheral cyanosis, edema and dry skin Neurological: Alert, awake, no asterixis Dermatology; no skin rashes Back: Nontender thoracolumbar spine, no CVA tenderness Psych: No agitation and aggression Musculoskeletal: No joint effusion noted - Vital Signs Vital signs: Vital Signs - 12hr 07/02/20 07/02/20 07/02/20 06:45 11:21 11:29 Temperature 97.9 F Pulse Rate 72 69 Respiratory 16 Rate Blood Pressure 109/56 106/47 106/47 O2 Sat by Pulse 91 Oximetry 07/02/20 07/02/20 07/02/20 11:30 11:31 14:45 Temperature 98.0 F Pulse Rate 69 69 81 Respiratory 18 Rate Blood Pressure 106/47 106/47 112/53 O2 Sat by Pulse Oximetry 07/02/20 07/02/20 07/02/20 14:50 15:00 15:15 Temperature Pulse Rate 78 78 75 Respiratory Rate Blood Pressure 117/51 99/70 118/59 O2 Sat by Pulse Oximetry 07/02/20 07/02/20 07/02/20 15:30 15:45 16:00 Temperature Pulse Rate 74 71 80 Respiratory Rate Blood Pressure 149/69 143/70 159/69 O2 Sat by Pulse Oximetry 07/02/20 07/02/20 16:15 16:30 Temperature Pulse Rate 73 76 Respiratory Rate Blood Pressure 142/67 157/71 O2 Sat by Pulse Oximetry - Lab 07/02/20 13:43 07/02/20 13:43 Most recent lab results Calcium 8.7 mg/dL (8.4-10.2) 07/02/20 13:43 Magnesium 2.90 mg/dL (1.7-2.3) H 06/30/20 17:12 Medications & Allergies - Medications Allergies/Adverse Reactions: Allergies No Known Allergies Allergy (Verified 10/08/13 07:00) Home Medications: Home Medications Medication Instructions Recorded Confirmed Last Taken Type Furosemide [Lasix] 40 mg PO QDAY #30 tablet 10/01/13 07/01/20 02/18/14 08:00 Rx Simvastatin 40 mg PO QHS #30 tablet 10/01/13 07/01/20 02/17/14 Rx 40 Terazosin (Nf) [Hytrin (Nf)] 5 mg PO QHS #30 capsule 10/01/13 07/01/20 02/18/14 Rx 40 mg cloNIDine [Catapres] 0.1 mg PO BID #60 tablet 10/01/13 07/01/20 02/18/14 10:00 Rx 0.1 hydrALAZINE [Apresoline TAB] 25 mg PO TID #90 tablet 10/01/13 07/01/20 02/18/14 08:00 Rx 25 Apixaban [Eliquis] 2.5 mg PO BID 07/01/20 07/01/20 Unknown History Aspirin [Adult Aspirin] 81 mg PO DAILY 07/01/20 07/01/20 Unknown History Tamsulosin [Flomax] 0.4 mg PO DAILY 07/01/20 07/01/20 Unknown History carvediloL [Coreg] 3.125 mg PO BID 07/01/20 07/01/20 Unknown History Active Medications: Generic Name Dose Route Start Last Admin Trade Name Freq PRN Reason Stop Dose Admin Acetaminophen 650 mg 06/30/20 22:47 Tylenol PO Q4H PRN Pain MILD(1-3)/Fever >100.5/RAO Apixaban 2.5 mg 07/01/20 22:00 07/02/20 11:36 Eliquis PO 2.5 mg BID MARISELA Administration Protocol Aspirin 81 mg 07/02/20 10:00 07/02/20 11:36 Halfprin Ec PO 81 mg DAILY MARISELA Administration Carvedilol 3.125 mg 07/01/20 22:00 07/02/20 11:30 Coreg PO Not Given BID MARISELA Clonidine HCl 0.1 mg 07/01/20 22:00 07/02/20 11:29 Catapres PO Not Given BID MARISELA Furosemide 40 mg 07/02/20 10:00 07/02/20 11:31 Lasix PO Not Given QDAY MARISELA Hydralazine HCl 25 mg 07/01/20 20:00 07/02/20 15:33 Apresoline PO Not Given TID [facility] Sodium Chloride 100 mls @ 999 mls/hr 07/02/20 14:30 Nacl 0.9% IV CHARLIE PRN Hypotension Magnesium Hydroxide 30 ml 06/30/20 22:47 Milk Of Magnesia PO Q4H PRN Constipation Morphine Sulfate 2 mg 06/30/20 22:47 Morphine IV Q4H PRN Pain, Moderate (4-6) Ondansetron HCl 4 mg 06/30/20 22:47 Zofran IV Q8H PRN Nausea And Vomiting Pravastatin Sodium 80 mg 07/01/20 22:00 07/01/20 22:16 Pravachol PO 80 mg QHS MARISELA Administration Prazosin HCl 2 mg 07/01/20 22:00 07/02/20 11:31 Prazosin PO Not Given Q12HR MARISELA Sodium Chloride 10 ml 07/01/20 10:00 07/02/20 11:37 Sodium Chloride Flush Syringe 10 Ml IV 10 ml BID MARISELA Administration Sodium Chloride 10 ml 06/30/20 22:47 Sodium Chloride Flush Syringe 10 Ml IV PRN PRN LINE FLUSH Tamsulosin HCl 0.4 mg 07/02/20 10:00 07/02/20 11:36 Flomax PO 0.4 mg DAILY MARISELA Administration
[2020-07-02] MEDS: PRAVASTATIN 80 MG TAB PO SCH (21:33)
[2020-07-03] MEDS: hydrALAZINE 25 MG TAB PO SCH (07:52)
[2020-07-03 10:35] VITALS: BP 118/53
[2020-07-03] MEDS: FUROSEMIDE 20 MG TAB PO SCH (10:49)
[2020-07-03] MEDS: APIXABAN 2.5 MG TAB PO SCH (10:49)
[2020-07-03] MEDS: ASPIRIN EC 81 MG TAB PO SCH (10:49)
[2020-07-03] MEDS: TAMSULOSIN 0.4 MG CAP PO SCH (10:54)
[2020-07-03] MEDS: PRAZOSIN 1 MG CAP PO SCH (10:55)
[2020-07-03] MEDS: cloNIDine 0.1 MG TAB PO SCH (10:55)
[2020-07-03] MEDS: carvediloL 3.125 MG TAB PO SCH (10:55)
--- NOTE | 2020-07-03 10:56 | Discharge Summary ---
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 He denies any loss of consciousness and no head injury during his fall, he denies any chest pain or shortness of breath, no fever or chills, no nausea vomiting, initial evaluation in the emergency room is consistent with hypotension with systolic blood pressures in 80s and diastolic blood pressure in 30s and hemoglobin of 6.9 and hematocrit of 21. Patient has symptomatic anemia admitted to the hospital received 1 unit of PRBC with slight improvement of hemoglobin to 7.5 Patient was also noted to have NSTEMI type II in view of ESRD Patient was evaluated by cardiology medications optimized Patient was also evaluated by nephrology received hemodialysis per schedule Patient symptoms slowly but steadily improved. Today patient is comfortable no new complaints vital signs stable physical examination is unremarkable Cardiology and nephrology cleared for discharge and follow-up per schedule Patient is hemodynamically and clinically stable at discharge. Discharge diagnosis: -- Symptomatic anemia Current Visit: Yes Status: Acute received 1 unit of PRBC transfusion Hb 6.9-7.5 Chronic anemia, no evidence of bleeding -- ESRD (end stage renal disease) Current Visit: No Status: Acute Hemodialysis per schedule MWF --Elevated troponins; probably an NSTEMI 2 Current Visit: No Status: Chronic Plan to address problem: In the setting of ESRD probably nonspecific Cardiology evaluated, optimized medications -- HTN (hypertension) Current Visit: No Status: Chronic Plan to address problem: Well-controlled, blood pressure in the lower range -- DVT prophylaxis Current Visit: Yes Status: Acute Plan to address problem: Received Heparin renal dose during the hospital stay --Full code status Current Visit: Yes Status: Acute Patient is stable at discharge Disposition: DC-01 TO HOME OR SELFCARE Time spent for discharge: 35 min Core Measure Documentation - Palliative Care Palliative Care/ Comfort Measures: Not Applicable - Core Measures Any of the following diagnoses?: none Exam - Constitutional Vitals: Temp Pulse Resp BP Pulse Ox 98.5 F 75 18 118/53 93 07/03/20 10:31 07/03/20 10:31 07/03/20 10:31 07/03/20 10:55 07/03/20 10:31 General appearance: Present: no acute distress, well-nourished - EENT Eyes: Present: PERRL, EOM intact - Neck Neck: Present: supple, normal ROM - Respiratory Respiratory effort: normal - Cardiovascular Rhythm: regular Heart Sounds: Present: S1 & S2 - Extremities Extremities: no ischemia, No edema - Abdominal General gastrointestinal: Present: soft, non-tender, non-distended, normal bowel sounds - Integumentary Integumentary: Present: clear, warm - Musculoskeletal Musculoskeletal: generalized weakness - Psychiatric Psychiatric: appropriate mood/affect, cooperative - Neurologic Neurologic: moves all extremities Plan Activity: fall precautions Diet: renal Additional Instructions: Advised to follow renal/hemodialysis per schedule MWF. If you have worsening symptoms contact MD or go to emergency room as needed Follow up with: PRIMARY MD DOTTY [Primary Care Provider] - 3-5 Days ADILENE CHING MD [Staff Physician] - 7 Days ANAND TEMPLE MD [Staff Physician] - 7 Days
--- NOTE | 2020-07-03 14:58 | Progress Note ---
Assessment and Plan - Patient Problems (1) Volume overload Current Visit: Yes Status: Acute Plan to address problem: Successful dialysis management of fluid overload. (2) Cor pulmonale Current Visit: Yes Status: Acute Plan to address problem: Patient has dilated right heart chambers, moderate to severe tricuspid regurgitation and moderate to severe pulmonary hypertension. (3) Atrial fibrillation Current Visit: No Status: Acute Plan to address problem: Continue rate control strategy of atrial fibrillation, and oral anticoagulation with Eliquis. (4) Aortic stenosis Current Visit: Yes Status: Acute Plan to address problem: Patient has multiple severe comorbidities and will be a poor candidate for aortic valve surgery, we will continue further outpatient evaluation for future possible percutaneous valve replacement. Subjective Date of service: 07/03/20 Principal diagnosis: anemia Interval history: Patient is comfortable, no cardiac complaints, he is planned for discharge today. He was admitted for constitutional symptoms associated with 2 missed dialysis sessions. He feels much better after resumption of regular dialysis. Echocardiogram here showed evidence of cor pulmonale with dilated right heart chambers, moderately severe tricuspid regurgitation and at least moderate pul monary hypertension there was also moderate severity aortic stenosis, and moderate mitral regurgitation. Objective Vital Signs Temp Pulse Resp BP BP BP Pulse Ox 07/03/20 10:55 118/53 07/03/20 10:31 98.5 F 75 18 118/53 93 07/03/20 10:30 118/53 07/03/20 07:52 129/56 07/03/20 07:50 129/56 07/03/20 04:58 98.9 F 74 16 112/47 92 07/02/20 22:00 96 07/02/20 21:43 98.6 F 75 18 124/57 96 07/02/20 21:40 98.6 F 76 24 118/57 93 07/02/20 21:39 76 07/02/20 21:35 156/62 07/02/20 21:34 76 156/62 07/02/20 19:06 98.2 F 76 20 156/62 07/02/20 18:30 75 157/62 07/02/20 18:15 73 155/72 07/02/20 18:00 74 154/68 07/02/20 17:45 76 165/64 07/02/20 17:30 76 162/61 07/02/20 17:15 73 150/61 07/02/20 17:00 75 160/74 07/02/20 16:45 77 172/71 07/02/20 16:30 76 157/71 07/02/20 16:15 73 142/67 07/02/20 16:00 80 159/69 07/02/20 15:45 71 143/70 07/02/20 15:30 74 149/69 07/02/20 15:15 75 118/59 07/02/20 15:00 78 99/70 - Physical Examination General: No Apparent Distress HEENT: Positive: PERRL Neck: Positive: neck supple Cardiac: Positive: irregularly irregular, Systolic Murmur Lungs: Positive: Decreased Breath Sounds Neuro: Positive: Grossly Intact Abdomen: Positive: Soft Skin: Positive: Clear Extremities: Absent: edema - Labs and Meds Comprehensive Metabolic Panel 07/02/20 Range/Units 13:43 Creatinine 7.8 H (0.8-1.3) mg/dL
--- NOTE | 2020-07-03 19:23 | Progress Note ---
Assessment and Plan Assessment * End-stage renal disease on hemodialysis * Hypertension * Symptomatic anemia * thrombocytopenia * Elevated troponin, demand ischemia * hyperparathyroidism * Hyperphosphatemia Recommendations * No indication for HD today * Transfuse for hemoglobin less than 7 * cardiology note reviewed * Continue home antihypertensives * Hold on HD days for systolics < 160 * Epogen with HD * Keep MAP > 65 * Phosphorus binders with meals * Renally dose medications * ESRD diet * OK for discharge from renal standpoint - he is to continue HD tomorrow at his usual facility upon discharge Subjective Date of service: 07/03/20 Principal diagnosis: anemia Interval history: Patient was seen for his renal issues Nursing, interdisciplinary and consult notes were reviewed Vitals, input and output, medications and labs were reviewed Feels better this morning Objective - Exam Narrative Exam: Vitals: Reviewed General: No acute distress HEENT: Oral mucosa moist, no pharyngeal erythema, no evidence of epistaxis Neck: Supple, no evidence of any JVD, trachea midline, no thyromegaly Chest: Clear to auscultation, no crackles, rales or wheezes Heart: decreased bibasilar breath sounds Abdomen: Soft, nontender, no renal bruit, no suprapubic masses no CVA tenderness Extremity: No peripheral cyanosis, edema and dry skin Neurological: Alert, awake, no asterixis Dermatology; no skin rashes Back: Nontender thoracolumbar spine, no CVA tenderness Psych: No agitation and aggression Musculoskeletal: No joint effusion noted - Vital Signs Vital signs: Vital Signs - 12hr 07/03/20 07/03/20 07/03/20 07:50 07:52 10:30 Temperature Pulse Rate Respiratory Rate Blood Pressure 129/56 129/56 118/53 Blood Pressure [Right] O2 Sat by Pulse Oximetry 07/03/20 07/03/20 10:31 10:55 Temperature 98.5 F Pulse Rate 75 Respiratory 18 Rate Blood Pressure 118/53 Blood Pressure 118/53 [Right] O2 Sat by Pulse 93 Oximetry - Lab 07/02/20 13:43 07/02/20 13:43 Most recent lab results Calcium 8.7 mg/dL (8.4-10.2) 07/02/20 13:43 Magnesium 2.90 mg/dL (1.7-2.3) H 06/30/20 17:12 Medications & Allergies - Medications Allergies/Adverse Reactions: Allergies No Known Allergies Allergy (Verified 10/08/13 07:00) Home Medications: Home Medications Medication Instructions Recorded Confirmed Last Taken Type Furosemide [Lasix] 40 mg PO QDAY #30 tablet 10/01/13 07/01/20 02/18/14 08:00 Rx Simvastatin 40 mg PO QHS #30 tablet 10/01/13 07/01/20 02/17/14 Rx 40 Terazosin (Nf) [Hytrin (Nf)] 5 mg PO QHS #30 capsule 10/01/13 07/01/20 02/18/14 Rx 40 mg cloNIDine [Catapres] 0.1 mg PO BID #60 tablet 10/01/13 07/01/20 02/18/14 10:00 Rx 0.1 hydrALAZINE [Apresoline TAB] 25 mg PO TID #90 tablet 10/01/13 07/01/20 02/18/14 08:00 Rx 25 Apixaban [Eliquis] 2.5 mg PO BID 07/01/20 07/01/20 Unknown History Aspirin [Adult Aspirin] 81 mg PO DAILY 07/01/20 07/01/20 Unknown History Tamsulosin [Flomax] 0.4 mg PO DAILY 07/01/20 07/01/20 Unknown History carvediloL [Coreg] 3.125 mg PO BID 07/01/20 07/01/20 Unknown History
== END 2020-07-03 15:30 | disposition home or self-care (01) | DRG 280 ==
LOC: ED 14:03 → OBSVTOIN 21:35 → 3A 21:35
PROVIDERS: ADMIT Internal Medicine Geriatric Medicine; ATTEND Internal Medicine
PROC: 30233N1 Transfusion of Nonautologous Red Blood Cells into Peripheral Vein, Percutaneous Approach (ICD-10-PCS; 2020-06-30)
PROC: 5A1D70Z Performance of Urinary Filtration, Intermittent, Less than 6 Hours Per Day (ICD-10-PCS; principal; 2020-07-02)
DX: I13.2 Hypertensive heart and chronic kidney disease with heart failure and with stage 5 chronic kidney disease, or end stage renal disease (principal); N18.6 End stage renal disease; I21.A1 Myocardial infarction type 2; E87.70 Fluid overload, unspecified; I27.81 Cor pulmonale (chronic); I35.0 Nonrheumatic aortic (valve) stenosis; E78.5 Hyperlipidemia, unspecified; D69.6 Thrombocytopenia, unspecified; E21.3 Hyperparathyroidism, unspecified; E03.9 Hypothyroidism, unspecified; I48.0 Paroxysmal atrial fibrillation; D63.8 Anemia in other chronic diseases classified elsewhere; Z87.891 Personal history of nicotine dependence; Z99.2 Dependence on renal dialysis
CPT/HCPCS: 36415; 70450; 71046; 80048; 80053; 80061; 80074; 82550; 82553; 83735; 84439; 84443; 84484; 85025; 85610; 85730; 86850; 86900; 86901; 86920; 93005; 93306; 96372; G0378; A9270-GY; J7040; P9016